=== PATIENT | female | born 1960 | race Caucasian/White ===

== ENCOUNTER 2016-12-18 14:55 | Emergency (ER) | payer MEDICARE, MEDICAID ==
[2016-12-18 15:20] VITALS: BP 173/98
--- NOTE | 2016-12-18 15:31 | UC ---
Respiratory Complaint HPI - HPI Summary HPI Summary: 56 yo female with a 4 day hx of productive cough and wheezing relying more on nebs now no fever/chills some dyspnea no cp x with cough - History of Current Complaint Chief Complaint: UCRespiratory Stated Complaint: RESPIRTORY Time Seen by Provider: 12/18/16 15:14 Hx Obtained From: Patient Onset/Duration: Gradual Onset, Lasting Days Timing: Constant Severity Initially: Moderate Severity Currently: Moderate Pain Intensity: 3 Pain Scale Used: 0-10 Numeric Character: Cough: Productive Aggravating Factors: Deep Breaths Alleviating Factors: Bronchodilator Associated Signs And Symptoms: Positive: Wheezing, Nasal Congestion - Allergies/Home Medications Allergies/Adverse Reactions: Allergies Allergy/AdvReac Type Severity Reaction Status Date / Time Adhesive Tape Allergy Unknown Verified 12/31/14 13:57 Reaction Details Carbapenems Allergy Unknown Verified 12/31/14 13:57 Reaction Details Cephalosporins Allergy Unknown Verified 12/31/14 13:57 Reaction Details Latex Allergy Unknown Verified 12/31/14 13:57 Reaction Details Penicillins [PCN] Allergy Unknown Verified 12/31/14 13:57 Reaction Details betaloctams Allergy Unknown Uncoded 12/31/14 13:57 Reaction Details Home Medications: Home Medications Insulin LISPRO* [HumaLOG*] 30 unit SUBCUT AC 12/18/16 [History Confirmed ] Simvastatin [Zocor 5 MG-] 0 mg PO DAILY 12/18/16 [History Confirmed 12/18/16] PMH/Surg Hx/FS Hx/Imm Hx Previously Healthy: No - pulmonary sacroidosis Endocrine History Of: Reports: Diabetes Cardiovascular History Of: Reports: Cardiac Disorders - CAD, Congestive Heart Failure Respiratory History Of: Reports: COPD, Asthma, Bronchitis, Pneumonia GI/ History Of: Reports: Kidney Stones - MULTIPLE RT KIDNEY 2010 - NOW LT FLANK PAIN - Surgical History Surgical History: Yes Surgery Procedure, Year, and Place: CABG X 4 vessels - Family History Known Family History: Positive: Cardiac Disease, Hypertension, Diabetes - Social History Alcohol Use: None Substance Use Type: None Smoking Status (MU): Never Smoked Tobacco Review of Systems Constitutional: Chills Skin: Negative Eyes: Negative ENT: Negative Respiratory: Shortness Of Breath, Cough Cardiovascular: Negative Gastrointestinal: Negative Genitourinary: Negative Motor: Negative Neurovascular: Negative Musculoskeletal: Negative Neurological: Negative Psychological: Negative All Other Systems Reviewed And Are Negative: Yes Physical Exam Triage Information Reviewed: Yes Appearance: Well-Appearing, No Pain Distress, Well-Nourished Vital Signs: Initial Vital Signs Temp 98.4 F 12/18/16 15:11 Pulse 102 12/18/16 15:11 Resp 20 12/18/16 15:11 BP 173/98 12/18/16 15:11 Pulse Ox 97 12/18/16 15:11 Vital Signs Reviewed: Yes Eyes: Positive: Conjunctiva Clear ENT: Positive: Hearing grossly normal, TMs normal. Negative: Nasal congestion, Nasal drainage, Tonsillar swelling, Tonsillar exudate, Trismus, Muffled/hoarse voice Neck: Positive: Supple, Nontender, No Lymphadenopathy Respiratory: Positive: No respiratory distress, No accessory muscle use, Wheezing. Negative: Respiratory distress, Decreased breath sounds, Accessory muscle use Cardiovascular: Positive: RRR. Negative: Tachycardia, Bradycardia Musculoskeletal: Positive: ROM Intact, No Edema Neurological: Positive: Alert Psychological Exam: Normal Skin Exam: Normal UC Diagnostic Evaluation - Laboratory O2 Sat by Pulse Oximetry: 97 - normal/not hypoxic Respiratory Course/Dx - Differential Dx/Diagnosis Provider Diagnoses: ACUTE BRONCHITIS WITH BRONCHOSPASM Discharge - Discharge Plan Condition: Stable Disposition: HOME Prescriptions: DOXYcycline CAP(*) [DOXYcycline 100MG CAP(*)] 100 mg PO BID #20 cap Prednisone [Deltasone] 40 mg PO DAILY #8 tab Patient Education Materials: Acute Bronchitis (ED) Referrals: Sejal Gill MD [Medical Doctor] - 4 Days Additional Instructions: take 40mg of prednisone the next 4 days then resume your normal daily dose recheck for new or worsening symptoms see your MD later this week for recheck
[2016-12-18] MEDS ORDERED: predniSONE TAB* 10 MG PO ONE (15:43)
[2016-12-18] MEDS ORDERED: Albuterol 2.5 MG/3 ML NEB.SOL* (0.083%) INH ONE (15:43)
[2016-12-18] MEDS ORDERED: Ipratropium 0.5MG/2.5ML NEB* 0.5 MG/2.5 ML NEB.SOLN INH ONE (15:43)
[2016-12-18] MEDS ORDERED: predniSONE TAB* 20 MG PO ONE (16:06)
[2016-12-18] MEDS ORDERED: Levalbuterol 0.63MG/3ML NEB INH ONE (16:06)
== END 2016-12-18 16:50 | disposition home or self-care (01) ==
LOC: UCCORT 14:55
DX: J20.9 Acute bronchitis, unspecified (principal); E11.9 Type 2 diabetes mellitus without complications; Z79.4 Long term (current) use of insulin; D86.0 Sarcoidosis of lung; Z95.1 Presence of aortocoronary bypass graft; I25.10 Atherosclerotic heart disease of native coronary artery without angina pectoris; Z88.0 Allergy status to penicillin; Z88.8 Allergy status to other drugs, medicaments and biological substances
CPT/HCPCS: 99212; A9270-GY; G0463; J7644

== ENCOUNTER 2019-12-27 19:24 | Emergency (ER) | payer MEDICARE, MEDICAID ==
--- OUTSIDE RECORDS SUMMARY | 2019-12-27 19:35 | XMS REPORT | Continuity of Care Document ---
:1960 Author Name Solar Energy Engineer, System Address Unavailable Unavailable , Care Team Providers Name Role Phone Elif Avilez MD Unavailable Norman Buck MD Unavailable Amaya MELENDEZ, Power Unavailable Norman Buck MD Unavailable Dut NPC, Clinton Mcmillan Unavailable Suzanne INSTALLER, Pat Unavailable Unavailable Mega INSTALLER, Cara Unavailable Unavailable Finesse Reyes Unavailable Unavailable Gallardo INSTALLER, Manuel Unavailable Unavailable Priscaglio MSN TARGETEER, Bev Unavailable DeFruscio NPC, Arin Unavailable Mannysey INSTALLER, Adina Unavailable Unavailable Person INSTALLER, Dejah Unavailable Unavailable White INSTALLER, Nichole Unavailable Unavailable Jerome INSTALLER, Sarai Unavailable Unavailable Slowik INSTALLER, Lavinia Unavailable Unavailable Unavailable Unavailable Problems ASTHMA (Renamed from AIRWAY HYPERREACTIVITY) (J45.909) (493.90) Dut, BETHANY Mcmillan CAD (CORONARY ARTERY DISEASE) (I25.10) (414.00) Dut, BETHANY Mcmillan CHF (CONGESTIVE HEART FAILURE) (I50.9) (428.0) Dut, BETHANY Mcmillan CVA (CEREBRAL VASCULAR ACCIDENT) (I63.9) (434.91) Dut, BETHANY Garnerh D GASTROESOPHAGEAL REFLUX DISEASE (K21.9) (530.81) Leonel [facility] Clinton Mcmillan HYPERTENSION (Renamed from BP (HIGH BLOOD PRESSURE)) (I10) (401.9) BETHANY Castaneda HYPOXEMIA (R09.02) (799.02) KRISTEN Cano Prognosis: Continue oxygen at night and PRN per orders. as of 29-Apr-2018 OBESITY (E66.9) (278.00) BETAHNY Castaneda Hipolito RENAL INSUFFICIENCY (N28.9) (593.9) Leonel [facility] Clinton Hipolito SARCOIDOSIS (Renamed from BENIGN LYMPHOGRANULOMATOSIS OF [place]) (D86.9) ( 135) KRISTEN Cano TRANSIENT ISCHEMIC ATTACK (G45.9) (435.9) BETHANY Castaneda Allergies and Adverse Reactions Adhesive Tape (Allergy) Albuterol Sulfate *ANTIASTHMATIC AND BRONCHODILATOR AGENTS* (Allergy) Comments: Dawood Amoxicillin *PENICILLINS* (Allergy) Carbapenems (Allergy) Cephalosporins (Allergy) Latex (Allergy) Penicillins (Allergy) Reaction: Hives Medications AMLODIPINE BESYLATE, 10MG (Oral Tablet); 2 two times daily (10 MG) ASPIRIN, 81MG (PO Cap); daily (81 MG) Atorvastatin Calcium 40 MG Oral Tablet; (40 MG) BYSTOLIC, 10MG (Oral Tablet); 1 two times daily (10 MG) CYMBALTA, 20MG (Oral Capsule Delayed Release Particles); two times daily (20 MG) DiltiaZEM HCl ER Coated Beads 180 MG Oral Capsule Extended Release 24 Hour; (180 MG) FUROSEMIDE, 40MG (Oral Tablet); 2 daily (40 MG) GLUCAGON EMERGENCY, 1MG (Injection Kit); UAD (1 MG) HUMALOG, 100UNIT/ML (Subcutaneous Solution); S/S (100 UNIT/ML) Lantus SoloStar 100 UNIT/ML Subcutaneous Solution Pen-injector; (100 UNIT/ML) Losartan Potassium 100 MG Oral Tablet; (100 MG) METFORMIN HCL, 1000MG (Oral Tablet); two times daily (1000 MG) NITROSTAT, 0.4MG (Sublingual Tablet Sublingual); UAD (0.4 MG) OXYGEN (Inhalation Gas) (Free Text); 2 L at bedtime PLAVIX, 75MG (Oral Tablet); daily (75 MG) Potassium Chloride Shadia ER 20 MEQ Oral Tablet Extended Release; (20 MEQ) POTASSIUM CHLORIDE ER, 10MEQ (Oral Tablet Extended Release); 20 mEq daily (10 MEQ) predniSONE 5 MG Oral Tablet; 1 1/2 (one and a half) Tablet daily for 90 days Ordered: 23-May-2019 Start: 23-May-2019 Quantity: 135 {Tablet} Dut, NPC Clinton D Comments: Decreased to 7.5 mg a day Refills: 3 PROCHLORPERAZINE MALEATE, 10MG Comments: Medication taken as (Oral Tablet); daily, as needed needed. (10 MG) PROTONIX, 40MG (Oral Tablet Delayed Release); two times daily (40 MG) Singulair 10 MG Oral Tablet; 1 Tablet daily for 30 days Ordered: 29-Apr-2018 Start: 29-Apr-2018 Quantity: 30 {Tablet} Dut, NPC Clinton D Refills: 5 Spironolactone 25 MG Oral Tablet; (25 MG) Symbicort 160-4.5 MCG/ACT Inhalation Aerosol; 2 two times daily (160-4.5 MCG/ACT) TOPAMAX, 100MG (Oral Tablet); two times daily (100 MG) Xopenex 1.25 MG/3ML Inhalation Nebulization Solution; UAD Nebulized Soln three times daily for 90 days Ordered: 03-Sep-2018 Start: 03-Sep-2018 Quantity: 270 {Ampule} Dut, NPC Clinton D Refills: 3 Xopenex HFA 45 MCG/ACT Inhalation Aerosol; 2 (two) Puff QID prn for 90 days Ordered: 29-Apr-2018 Start: 29-Apr-2018 Quantity: 3 {Inhaler} Dut, NPC Clinton D Refills: 3 Advair Diskus 500-50 MCG/DOSE Inhalation Aerosol Powder Breath Activated; 1 PUFF Inhalation two times daily for 90 days Ordered: 08-May-2018 Start: End: 08-May-2018 Quantity: 3 {Inhaler} KRISTEN Cano Status: Inactive Refills: 3 AMLODIPINE BESY-BENAZEPRIL HCL, End: 13-Nov-2012 5-40MG (Oral Capsule); two times Status: Inactive daily (5-40 MG) ATENOLOL-CHLORTHALIDONE, 100-25MG End: 13-Nov-2012 (Oral Tablet); daily (100-25 MG) Status: Inactive BYETTA 10 MCG PEN, 10MCG/0.04ML Status: Inactive (Subcutaneous Solution); two times daily (10 MCG/0.04ML) CELEBREX, 200MG (Oral Capsule); End: 13-Nov-2012 daily (200 MG) Status: Inactive CLONIDINE HCL, 0.2MG (Oral Status: Inactive Tablet); three times daily (0.2 MG) Doxycycline Hyclate 100 MG Oral Capsule; 1 (one) Capsule two times daily for 10 days Ordered: 31-Dec-2018 Start: 31-Dec-2018 End: 10-Jan-2019 Quantity: 20 {Capsule} DeFruscio, BETHANY Hinkle Status: Inactive Refills: 0 FAMOTIDINE, 20MG (Oral Tablet); Status: Inactive two times daily (20 MG) FUROSEMIDE, 40MG (Oral Tablet); End: 13-Nov-2012 daily (40 MG) Status: Inactive GLIPIZIDE, 10MG (Oral Tablet Status: Inactive Extended Release 24 Hour); two times daily (10 MG) ISOSORBIDE MONONITRATE CR, 60MG End: 13-Nov-2012 (Oral Tablet Extended Release 24 Status: Inactive Hour); two times daily (60 MG) JANUVIA, 100MG (Oral Tablet); Status: Inactive daily (100 MG) KLOR-CON 10, 10MEQ (Oral Tablet End: 13-Nov-2012 Extended Release); daily (10 Status: Inactive MEQ) LASIX, 80MG (Oral Tablet); 1 two End: 13-May-2013 times daily (80 MG) Status: Inactive LEVEMIR FLEXPEN, 100UNIT/ML Status: Inactive (Subcutaneous Solution Pen-injector); 60ml two times daily (100 UNIT/ML) LEVEMIR FLEXTOUCH, 100UNIT/ML Status: Inactive (Subcutaneous Solution Pen-injector); 40 U Two times daily (100 UNIT/ML) LISINOPRIL, 40MG (Oral Tablet); Status: Inactive 1 two times daily (40 MG) LISINOPRIL, 5MG (Oral Tablet); End: 13-Nov-2012 daily (5 MG) Status: Inactive METOLAZONE, 5MG (Oral Tablet); 1 End: 13-May-2013 daily (5 MG) Status: Inactive NITROSTAT, 0.4MG (Sublingual End: 13-Nov-2012 Tablet Sublingual); uAD (0.4 MG) Status: Inactive NORVASC, 10MG (Oral Tablet); two Status: Inactive times daily (10 MG) OMEPRAZOLE, 40MG (Oral Capsule Status: Inactive Delayed Release); daily (40 MG) PORTABLE CONCENTRATOR ( Device) (Free Text); 1 Device UAD for 30 days Ordered : 13-Nov-2012 Start: 13-Nov-2012 End: 13-Dec-2012 Refills: 0 MD Norman Buck Status: Inactive PREDNISONE (ULISES), 5MG (Oral Tablet); 8 Tablet daily decreasing by 5mg QOD until gone for 16 days Ordered: 08-Jun-2014 Start: 08-Jun-2014 End: 2013 Quantity: 72 {Tablet} DeFruscio, NPC Arin Status: Inactive Refills: 0 predniSONE 5 MG Oral Tablet; 6 Tablet DAILY DECREASING BY 5 MG QOD UNTIL GONE for 12 days Ordered: 31-Dec-2018 Start: 31-Dec-2018 End: 12-Jan-2019 Quantity: 42 {Tablet} DeFruscio, NPC Arin Status: Inactive Refills: 0 PREDNISONE, 2.5MG (Oral Tablet); 3 (three) Tablet daily for 30 days Ordered: 25-Oct-2011 Start: 25-Oct-2011 End: 13-May-2012 Quantity: 90 {Tablet} KRISTEN Gallardo Status: Inactive Refills: 3 SPIRONOLACTONE, 25MG (Oral Status: Inactive Tablet); three times daily (25 MG) AVAPRO, 300MG (Oral Tablet); End: 01-Mar-2012 daily (300 MG) Status: Discontinued BYETTA 5 MCG PEN, 5MCG/0.02ML End: 01-Mar-2012 (Subcutaneous Solution); two Status: Discontinued times daily (5 MCG/0.02ML) HYDROCHLOROTHIAZIDE, 25MG (Oral End: 01-Mar-2012 Tablet); daily (25 MG) Status: Discontinued MELOXICAM, 7.5MG (Oral Tablet); End: 13-May-2013 1 at bedtime (7.5 MG) Status: Discontinued METOPROLOL TARTRATE, 100MG (Oral End: 01-Mar-2012 Tablet); daily (100 MG) Status: Discontinued TRIBENZOR, 40-5-25MG (Oral End: 13-May-2013 Tablet); 1 daily (40-5-25 MG) Status: Discontinued Procedures RESPIRATORY FLOW VOLUME LOOP ([id number]) Status: Completed 29-Apr-2018 REST OXIMETRY (09085) Status: Completed 29-Apr-2018 REST OXIMETRY (90316) Status: Completed 19-Jan-2017 RESPIRATORY FLOW VOLUME LOOP (19907) Status: Completed 19-Jan-2017 REST OXIMETRY (10956) Status: Completed 05-Jan-2016 RESPIRATORY FLOW VOLUME LOOP (45422) Status: Completed 05-Jan-2016 REST OXIMETRY (33641) Status: Completed 07-Jul-2015 RESPIRATORY FLOW VOLUME LOOP (28992) Status: Completed 07-Jul-2015 Pre/Post next visit (94152) Status: Completed 07-Jul-2015 RESPIRATORY FLOW VOLUME LOOP (32925) Status: Completed 30-Jul-2014 Pre/Post next visit (93044) Status: Completed 30-Jul-2014 REST/EXERCISE OXIMETRY (51224) Status: Completed 30-Jul-2014 REST/ EXERCISE OXIMETRY (50002) Status: Completed 12-Nov-2013 RESPIRATORY FLOW VOLUME LOOP (66521) Status: Completed 12-Nov-2013 PRE AND POST (54333) Status: Completed 12-Nov-2013 REST/ EXERCISE OXIMETRY (73288) Status: Completed 13-May-2013 RESPIRATORY FLOW VOLUME LOOP (31345) Status: Completed 13-May-2013 PRE AND POST (24149) Status: Completed 13-May-2013 PFT Simple (52972) Status: Completed 13-May-2012 REST/EXERCISE OXIMETRY (24496) Status: Completed 01-Mar-2012 RESPIRATORY FLOW VOLUME LOOP (33106) Status: Completed 01-Mar-2012 PRE/ POST (61246) Status: Completed 01-Mar-2012 Cardiac Catheterization Status: Completed Comments: x4- 05/2001, 04/2007, 06/2008, 04/2011 Carpal Tunnel Surgery - Right Status: Completed Flu Vaccine Status: Completed Jul-2011 Knee Surgery Status: Completed Comments: Left. PFT Status: Completed 13-May-2012 Comments: Results:. Normal. No Obstruction. PFTs Status: Completed 25-Oct-2011 Comments: Results:. Normal. No Obstruction. Tubal Ligation Status: Completed ACT: ASSESSMENT OF DISEASE: ASTHMA SYMPTOMS EVALUATE Status: Completed (1005F)Result: [Questions] In the past 4 weeks, how much of the time did your asthma keep you from getting as much done at work, school, or home?: 5; During the past 4 weeks, how often have you had shortness of breath?: 5; During the past 4 weeks, how often did your asthma symptoms (wheezing, coughing, shortness of breath, chest tightness, or pain) wake you up at night or earlier than usual in the morning?: 5; During the past 4 weeks, how often have you used your rescue inhaler or nebulizer medication (such as albuterol)?: 5; How would you rate your asthma control during the past 4 weeks?: 3 [Total ACT Score] Score: 23 PRE AND POST W/ RT (59406)Result: Hemoptysis: No Status: Completed 2017 PRE AND POST W/ RT (24338)Result: Hemoptysis: No Status: Completed 19-Jan-2017 PRE AND POST (64374)Result: Hemoptysis: No Status: Completed 05-Jan-2016 ACT - Asthma Control Test NV (1005F)Result: Status: Completed 30-Jul-2014 [Questions] In the past 4 weeks, how much of the time did your asthma keep you from getting as much done at work, school, or home?: 4; During the past 4 weeks, how often have you had shortness of breath?: 3; During the past 4 weeks, how often did your asthma symptoms (wheezing, coughing, shortness of breath, chest tightness, or pain) wake you up at night or earlier than usual in the morning?: 3; During the past 4 weeks, how often have you used your rescue inhaler or nebulizer medication (such as albuterol)?: 4; How would you rate your asthma control during the past 4 weeks?: 3 [Total ACT Score] Score: 17 ACT: ASSESSMENT OF DISEASE: ASTHMA SYMPTOMS EVALUATE Status: Completed (1005F)Result: [Questions] In the past 4 weeks, how much of the time did your asthma keep you from getting as much done at work, school, or home?: 2; During the past 4 weeks, how often have you had shortness of breath?: 1; During the past 4 weeks, how often did your asthma symptoms (wheezing, coughing, shortness of breath, chest tightness, or pain) wake you up at night or earlier than usual in the morning?: 1; During the past 4 weeks, how often have you used your rescue inhaler or nebulizer medication (such as albuterol)?: 2; How would you rate your asthma control during the past 4 weeks?: 2 [Total ACT Score] Score: 8 CHEST X-RAY (40945) PA & LResult: Are you or Status: Completed Apr-2012 could you become ?: No; Pediatric Dental Assistant: Nissa Valadez LPN Asthma Control Test (ACT)Result: [Questions] In the Date: 01-Mar-2012 past 4 weeks, how much of the time did your asthma keep you from getting as much done at work, school, or home?: 3; During the past 4 weeks, how often have you had shortness of breath?: 3; During the past 4 weeks, how often did your asthma symptoms (wheezing, coughing, shortness of breath, chest tightness, or pain) wake you up at night or earlier than usual in the morning?: 2; During the past 4 weeks, how often have you used your rescue inhaler or nebulizer medication (such as albuterol)?: 1; How would you rate your asthma control during the past 4 weeks?: 3 [Total ACT Score] Score: 12 CHEST X-RAY (81057) PA & LResult: Are you or Date: 01-Mar-2012 could you become ?: No; Pediatric Dental Assistant: Finesse Reyes Pre/Post ([id number])Result: Hemoptysis: No; Medication Date: 25-Oct-2011 Used: Xoponex 0.63%; Roofer Helper Vinyl Coating: Adina Coates LPN RESPIRATORY FLOW VOLUME LOOP (20534)Result: Date: 25-Oct-2011 Hemoptysis: No; Medication Used: Xoponex 0.63% Immunizations Influenza (3 years and up) On: 15-Jul-2011 Comments:Given at PCP Influenza (3 years and up) On: 01-Jul-2012 Comments:given at PCP- date approx. Influenza (3 years and up) On: Jul-2013 Comments:received Influenza (3 years and up) On: 15-Jul-2014 Comments:Family Health Influenza (3 years and up) On: Jun-2015 Family History Lung/Respiratory Disease Status: Active Comments: Negative Family History Of. Social History Alcohol use:; Occasional alcohol use. Current work status:; Disabled. Marital status:; . No drug use Tobacco use:; Never smoker. Never smoked tobacco Female Plan of Treatment PRE AND POST W/ RT (69234) Start: 28-Oct-2018 Intent ACT: ASSESSMENT OF DISEASE: ASTHMA SYMPTOMS EVALUATE Start: 19-Jan-2017 Intent (1005F) PRE AND POST W/ RT (85510) Start: 05-Jan-2016 Intent CHEST X-RAY, PA AND LATERAL (05107) Start: 12-Nov-2013 Intent REST OXIMETRY (92381) Start: 13-Nov-2012 Intent Pre/Post (48779) Start: 13-Nov-2012 Intent ASTHMA (Renamed from AIRWAY HYPERREACTIVITY) : Avoid triggers Indication:ASTHMA (Renamed from AIRWAY HYPERREACTIVITY) HYPOXEMIA : Oxygen supplies prn Indication:HYPOXEMIA HYPOXEMIA : Oxygen use reinforced Indication:HYPOXEMIA ASTHMA (Renamed from AIRWAY HYPERREACTIVITY) : Avoid triggers Indication:ASTHMA (Renamed from AIRWAY HYPERREACTIVITY) HYPOXEMIA : Oxygen supplies prn Indication:HYPOXEMIA HYPOXEMIA : Oxygen use reinforced Indication:HYPOXEMIA SARCOIDOSIS (Renamed from BENIGN LYMPHOGRANULOMATOSIS OF [place]) : Call with worsening symptoms Indication:SARCOIDOSIS (Renamed from BENIGN LYMPHOGRANULOMATOSIS OF [place]) SARCOIDOSIS (Renamed from BENIGN LYMPHOGRANULOMATOSIS OF [place]) : Influenza vaccine seasonally Indication:SARCOIDOSIS (Renamed from BENIGN LYMPHOGRANULOMATOSIS OF [place]) SARCOIDOSIS (Renamed from BENIGN LYMPHOGRANULOMATOSIS OF [place]) : Medication compliance reinforced Indication:SARCOIDOSIS (Renamed from BENIGN LYMPHOGRANULOMATOSIS OF [place]) ASTHMA (Renamed from AIRWAY HYPERREACTIVITY) : Avoid triggers Indication:ASTHMA (Renamed from AIRWAY HYPERREACTIVITY) HYPOXEMIA : Oxygen supplies prn Indication:HYPOXEMIA HYPOXEMIA : Oxygen use reinforced Indication:HYPOXEMIA ASTHMA (Renamed from AIRWAY HYPERREACTIVITY) : Avoid triggers Indication:ASTHMA (Renamed from AIRWAY HYPERREACTIVITY) ASTHMA (Renamed from AIRWAY HYPERREACTIVITY) : Avoid triggers Indication:ASTHMA (Renamed from AIRWAY HYPERREACTIVITY) ASTHMA (Renamed from AIRWAY HYPERREACTIVITY) : Medication compliance reinforced Indication:ASTHMA (Renamed from AIRWAY HYPERREACTIVITY) SARCOIDOSIS (Renamed from BENIGN LYMPHOGRANULOMATOSIS OF [place]) : Medication compliance reinforced Indication:SARCOIDOSIS (Renamed from BENIGN LYMPHOGRANULOMATOSIS OF [place]) ASTHMA (Renamed from AIRWAY HYPERREACTIVITY) : Influenza vaccine seasonally Indication:ASTHMA (Renamed from AIRWAY HYPERREACTIVITY) ASTHMA (Renamed from AIRWAY HYPERREACTIVITY) : Medication compliance reinforced Indication:ASTHMA (Renamed from AIRWAY HYPERREACTIVITY) Results No Known Results No Result Information Available Vital Signs 29-Apr-2018 11:43 Temperature 98.2 f Comments: Method: Tympanic Pulse 101 /min Comments: Pattern: Regular Respiration Rate 14 /min Comments: Pattern: Unlabored O2 SAT 98 % Comments: Room air BP Systolic 150 mm[Hg] Comments: Patient Position: Sitting; Cuff Location: Left Arm; Cuff Size: Standard BP Diastolic 110 mm[Hg] Comments: Patient Position: Sitting; Cuff Location: Left Arm; Cuff Size: Standard Weight 194 lb Height 62 in BMI 35.48 kg/m2 BSA 1.89 m2 19-Jan-2017 14:41 Temperature 98.5 f Comments: Method: Tympanic Pulse 92 /min Comments: Pattern: Regular Respiration Rate 12 /min Comments: Pattern: Unlabored O2 SAT 98 % Comments: Room air BP Systolic 120 mm[Hg] Comments: Patient Position: Sitting; Cuff Location: Left Arm; Cuff Size: Standard BP Diastolic 70 mm[Hg] Comments: Patient Position: Sitting; Cuff Location: Left Arm; Cuff Size: Standard Weight 204 lb Height 62 in BMI 37.31 kg/m2 BSA 1.93 m2 05-Jan-2016 12:41 Temperature 97.9 f Comments: Method: Tympanic Pulse 87 /min Comments: Pattern: Regular Respiration Rate 16 /min Comments: Pattern: Unlabored O2 SAT 96 % Comments: Room air BP Systolic 136 mm[Hg] Comments: Patient Position: Sitting; Cuff Location: Left Arm; Cuff Size: Standard BP Diastolic 88 mm[Hg] Comments: Patient Position: Sitting; Cuff Location: Left Arm; Cuff Size: Standard Weight 227 lb Height 62 in BMI 41.52 kg/m2 BSA 2.02 m2 07-Jul-2015 10:14 Temperature 98.1 f Comments: Method: Tympanic Pulse 95 /min Comments: Pattern: Regular Respiration Rate 16 /min Comments: Pattern: Unlabored O2 SAT 98 % Comments: Room air BP Systolic 184 mm[Hg] Comments: Patient Position: Sitting; Cuff Location: Left Arm; Cuff Size: Standard BP Diastolic 114 mm[Hg] Comments: Patient Position: Sitting; Cuff Location: Left Arm; Cuff Size: Standard Weight 224 lb Height 62 in BMI 40.97 kg/m2 BSA 2.01 m2 30-Jul-2014 13:39 Comments: Exertional SaO2 on RA-96% Temperature 98.7 f Comments: Method: Tympanic Pulse 105 /min Comments: Pattern: Regular Respiration Rate 12 /min Comments: Pattern: Unlabored O2 SAT 97 % Comments: Room air BP Systolic 148 mm[Hg] Comments: Patient Position: Sitting; Cuff Location: Left Arm; Cuff Size: Standard BP Diastolic 88 mm[Hg] Comments: Patient Position: Sitting; Cuff Location: Left Arm; Cuff Size: Standard Weight 227 lb Height 62 in BMI 41.52 kg/m2 BSA 2.02 m2 17-Dec-2013 12:30 Temperature 96.9 f Comments: Method: Tympanic Pulse 118 /min Comments: Pattern: Regular Respiration Rate 16 /min Comments: Pattern: Unlabored O2 SAT 97 % Comments: Room air BP Systolic 132 mm[Hg] Comments: Patient Position: Sitting; Cuff Location: Left Arm; Cuff Size: Large BP Diastolic 80 mm[Hg] Comments: Patient Position: Sitting; Cuff Location: Left Arm; Cuff Size: Large Weight 235 lb Height 62 in BMI 42.98 kg/m2 BSA 2.05 m2 12-Nov-2013 12:14 Comments: Exertional Sa02 - 98% Temperature 98.7 f Comments: Method: Tympanic Pulse 118 /min Comments: Pattern: Regular Respiration Rate 16 /min Comments: Pattern: Unlabored O2 SAT 98 % Comments: Room air BP Systolic 146 mm[Hg] Comments: Patient Position: Sitting; Cuff Location: Left Arm; Cuff Size: Standard BP Diastolic 102 mm[Hg] Comments: Patient Position: Sitting; Cuff Location: Left Arm; Cuff Size: Standard Weight 237 lb Height 62 in BMI 43.35 kg/m2 BSA 2.05 m2 13-May-2013 12:05 Comments: Exertional SaO2- 95% Temperature 99.2 f Comments: Method: Tympanic Pulse 100 /min Comments: Pattern: Regular O2 SAT 99 % Comments: Room air BP Systolic 142 mm[Hg] Comments: Patient Position: Sitting; Cuff Location: Left Arm; Cuff Size: Large BP Diastolic 110 mm[Hg] Comments: Patient Position: Sitting; Cuff Location: Left Arm; Cuff Size: Large Weight 233 lb Height 62 in BMI 42.62 kg/m2 BSA 2.04 m2 13-Nov-2012 14:01 Temperature 98.6 f Comments: Method: Tympanic Pulse 96 /min Comments: Pattern: Regular Respiration Rate 18 /min Comments: Pattern: Unlabored O2 SAT 95 % Comments: Room air BP Systolic 118 mm[Hg] Comments: Patient Position: Sitting; Cuff Location: Left Arm; Cuff Size: Standard BP Diastolic 84 mm[Hg] Comments: Patient Position: Sitting; Cuff Location: Left Arm; Cuff Size: Standard Weight 219 lb Height 62 in BMI 40.06 kg/m2 BSA 1.99 m2 13-May-2012 12:49 Comments: exercise 95 % Temperature 98.3 f Comments: Method: Tympanic Pulse 80 /min Comments: Pattern: Regular Respiration Rate 15 /min Comments: Pattern: Unlabored O2 SAT 97 % Comments: Room air BP Systolic 130 mm[Hg] Comments: Patient Position: Sitting; Cuff Location: Left Arm; Cuff Size: Large BP Diastolic 90 mm[Hg] Comments: Patient Position: Sitting; Cuff Location: Left Arm; Cuff Size: Large Weight 223 lb Height 62 in BMI 40.79 kg/m2 BSA 2 m2 01-Mar-2012 14:23 Comments: Room Air Exertional SaO2- 98% Temperature 99.1 f Comments: Method: Tympanic Pulse 84 /min Comments: Pattern: Regular Respiration Rate 14 /min Comments: Pattern: Unlabored O2 SAT 98 % Comments: Room air BP Systolic 118 mm[Hg] Comments: Patient Position: Sitting; Cuff Location: Left Arm; Cuff Size: Standard BP Diastolic 70 mm[Hg] Comments: Patient Position: Sitting; Cuff Location: Left Arm; Cuff Size: Standard Weight 216 lb Height 62 in BMI 39.51 kg/m2 BSA 1.98 m2 25-Oct-2011 13:01 Temperature 98.1 f Comments: Method: Tympanic Pulse 82 /min Comments: Pattern: Regular Respiration Rate 18 /min Comments: Pattern: Unlabored O2 SAT 98 % Comments: Room air BP Systolic 124 mm[Hg] Comments: Patient Position: Sitting; Cuff Location: Left Arm; Cuff Size: Standard BP Diastolic 80 mm[Hg] Comments: Patient Position: Sitting; Cuff Location: Left Arm; Cuff Size: Standard Weight 210 lb Height 61 in BMI 39.68 kg/m2 BSA 1.93 m2 Advance Directives HIPAA - Effective on 04/29/2018. Expires on 04/29/2019. Effective: 29-Apr-2018 Scanned Document is available upon request. Encounters Medication Order 23-May-2019 16:36 To 23-May-2019 16:39 Encounter Diagnosis: ASTHMA (Renamed from AIRWAY HYPERREACTIVITY) [facility] Office Medication Order 31-Dec-2018 12:17 To 31-Dec-2018 12:50 Encounter Diagnosis: ASTHMA (Renamed from AIRWAY HYPERREACTIVITY) [facility], Medication Order 03-Sep-2018 13:20 To 03-Sep-2018 16:42 Encounter Diagnosis: ASTHMA (Renamed from AIRWAY HYPERREACTIVITY) [facility] Historical Summary 31-Jul-2018 12:42 To 31-Jul-2018 13:04 Encounter Diagnosis: ASTHMA (Renamed from AIRWAY HYPERREACTIVITY) [facility] Historical Summary 08-May-2018 16:46 To 08-May-2018 17:02 [facility] Medication Order 01-May-2018 14:05 To 01-May-2018 16:23 Encounter Diagnosis: ASTHMA (Renamed from AIRWAY HYPERREACTIVITY) [facility] Office Office Visit 29-Apr-2018 11:35 To 29-Apr-2018 13:08 Encounter Reason: Asthma Follow Up PHP - The referring provider is Dr. Sanju Coulter. Symptoms include dyspnea (with exer [facility] Office tion, recently diagnosed with CHF), wheezing, cough, prednisone (on due to Sarcoidosis), seasonal triggers and environmental triggers. The last office visit was 1 year(s) ago. Current treatment includes inhaled short-acting beta-2 agonists, inhaled long-acting beta-2 agonists, inhaled corticosteroids and oral corticosteroids. Pertinent medical history includes other pulmonary disease (sarcoidosis) and allergic rhinitis, while pertinent medical history does not include hospitalization for asthma. Pertinent family history does not include asthma, chronic obstructive pulmonary disease or lung cancer. T he patient has been exposed to second hand smoke. The patient's long-term asthma pattern may be classified as mild persistent. The patient describes the difficulty breathing as dyspnea on exertion. Onse t of symptoms was gradual year(s) ago. Onset followed an environmental change, a change in weather and exposure to an irritant. The symptoms occur mostly during the daytime. The episodes occur daily. Th e patient describes this as mild and unchanged. The _asthma_ occurs with exertion. Symptoms are exacerbated by cold temperature and activity. Symptoms are relieved by inhaler use, rest and oral steroids . Associated symptoms do not include orthopnea, fever or chills. The patient reports use of rescue bronchodilator 3 times a day. Bronchodilator use is staying the same. By report there is good complianc e with treatment, good tolerance of treatment and fair symptom control. The patient is currently able to do activities of daily living with limitations, unable to work and able to do housework with limi tations. The patient was previously evaluated in this clinic. Past evaluation has included spirometry, pulmonary function testing, pulse oximetry and chest x- ray. Encounter Diagnosis: ASTHMA (Renamed from [employer]), OBESITY Historical Summary 06-Feb-2018 16:14 To 07-Feb-2018 7:39 Encounter Diagnosis: ASTHMA (Renamed from [employer]) [facility] Office Medication Order 13-Sep-2017 16:15 To 14-Sep-2017 8:02 Encounter Diagnosis: ASTHMA (Renamed from [employer]) [facility], Historical Summary 19-Jan-2017 15:25 To 19-Jan-2017 15:27 [facility] Office Office Visit 19-Jan-2017 14:33 To 19-Jan-2017 15:21 Encounter Reason: Asthma Follow Up [facility] - The referring provider is Dr. Sanju Coulter. Symptoms include dyspnea (with exer [facility] tion, recently diagnosed with CHF), wheezing, cough, prednisone (on due to Sarcoidosis), seasonal triggers and environmental triggers. The last office visit was 1 year(s) ago. Current treatment includes inhaled short-acting beta-2 agonists, inhaled long-acting beta-2 agonists, inhaled corticosteroids and oral corticosteroids. Pertinent medical history includes other pulmonary disease (sarcoidosis) and allergic rhinitis, while pertinent medical history does not include hospitalization for asthma. Pertinent family history does not include asthma, chronic obstructive pulmonary disease or lung cancer. T he patient has been exposed to second hand smoke. The patient's long-term asthma pattern may be classified as mild persistent. The patient describes the difficulty breathing as dyspnea on exertion. Onse t of symptoms was gradual year(s) ago. Onset followed an environmental change, a change in weather and exposure to an irritant. The symptoms occur mostly during the daytime. The episodes occur daily. Th e patient describes this as mild and unchanged. The _asthma_ occurs with exertion. Symptoms are exacerbated by cold temperature and activity. Symptoms are relieved by inhaler use, rest and oral steroids . Associated symptoms do not include orthopnea, fever or chills. The patient reports use of rescue bronchodilator 3 times a day. Bronchodilator use is staying the same. By report there is good complianc e with treatment, good tolerance of treatment and fair symptom control. The patient is currently able to do activities of daily living with limitations, unable to work and able to do housework with limi tations. The patient was previously evaluated in this clinic. Past evaluation has included spirometry, pulmonary function testing, pulse oximetry and chest x- ray. 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 Sanju Coulter. Symptoms include dyspnea (with [facility] tion, recently diagnosed with CHF), wheezing, cough, prednisone (on due to Sarcoidosis), seasonal triggers and environmental triggers. The last office visit was 6 month(s) ago. Current treatment include s inhaled short-acting beta-2 agonists, inhaled long-acting beta-2 agonists, inhaled corticosteroids and oral corticosteroids. Pertinent medical history includes other pulmonary disease (sarcoidosis) an d allergic rhinitis, while pertinent medical history does not include hospitalization for asthma. Pertinent family history does not include asthma, chronic obstructive pulmonary disease or lung cancer. The patient has been exposed to second hand smoke. The patient's long-term asthma pattern may be classified as mild persistent. The patient describes the difficulty breathing as dyspnea on exertion. Ons et of symptoms was gradual year(s) ago. Onset followed an environmental change , a change in weather and exposure to an irritant. The symptoms occur mostly during the daytime. The episodes occur daily. T he patient describes this as mild and unchanged. The _asthma_ occurs with exertion. Symptoms are exacerbated by cold temperature and activity. Symptoms are relieved by inhaler use, rest and oral steroid s. Associated symptoms do not include orthopnea, fever or chills. The patient reports use of rescue bronchodilator 3 times a day. Bronchodilator use is staying the same. By report there is good complian ce with treatment, good tolerance of treatment and fair symptom control. The patient is currently able to do activities of daily living with limitations, unable to work and able to do housework with lainez itations. The patient was previously evaluated in this clinic. Past evaluation has included spirometry, pulmonary function testing, pulse oximetry and chest x- ray. Encounter Diagnosis: ASTHMA (Renamed from [employer]IV[employer]), OBESITY Office Visit 07-Jul-2015 9:46 To 07-Jul-2015 13:06 Encounter Reason: Asthma Follow Up [facility] - The referring provider is Dr. Sanju Coulter. Symptoms include dyspnea (with [facility] tion, recently diagnosed with CHF), wheezing, cough, prednisone (on due to Sarcoidosis), seasonal triggers and environmental triggers. The last office visit was 1 year(s) ago. Current treatment includes inhaled short-acting beta-2 agonists, inhaled long-acting beta-2 agonists, inhaled corticosteroids and oral corticosteroids. Pertinent medical history includes other pulmonary disease (sarcoidosis) and allergic rhinitis, while pertinent medical history does not include hospitalization for asthma. Pertinent family history does not include asthma, chronic obstructive pulmonary disease or lung cancer. T he patient has been exposed to second hand smoke. The patient's long-term asthma pattern may be classified as mild persistent. The patient describes the difficulty breathing as dyspnea on exertion. Onse t of symptoms was gradual year(s) ago. Onset followed an environmental change, a change in weather and exposure to an irritant. The symptoms occur mostly during the daytime. The episodes occur daily. Th e patient describes this as mild and unchanged. The _asthma_ occurs with exertion. Symptoms are exacerbated by cold temperature and activity. Symptoms are relieved by inhaler use, rest and oral steroids . Associated symptoms do not include orthopnea, fever or chills. The patient reports use of rescue bronchodilator 3 times a day. Bronchodilator use is staying the same. By report there is good complianc e with treatment, good tolerance of treatment and fair symptom control. The patient is currently able to do activities of daily living with limitations, unable to work and able to do housework with limi tations. The patient was previously evaluated in this clinic. Past evaluation has included spirometry, pulmonary function testing, pulse oximetry and chest x- ray. Encounter Diagnosis: ASTHMA (Renamed from [employer]IV[employer]), OBESITY Medication Order 18-Feb-2015 16:01 To 18-Feb-2015 16:21 Encounter Diagnosis: ASTHMA (Renamed from [employer]) [facility] Office Office Visit 30-Jul-2014 13:22 To 30-Jul-2014 14:12 Encounter Reason: ASTHMA, FOLLOW UP - The patient's asthma causes daytime symptoms most days. The patient's asthma is n [facility] ot disturbing sleep. Note for "Follow-up for asthma": July 30, 2014 Mya is using her oxygen at night for sleep. She has no daytime sleepiness she is able to lose some weight and feels better. He r breathing is doing well she is not symptomatic with any increased shortness of breath or wheezing and chest tightness or cough she has no increased joint pains no headaches no fevers or chills no coughing up blood. Encounter Diagnosis: ASTHMA (Renamed from [employer]), SARCOIDOSIS (Renamed from BENIGN LYMPHOGRANULOMATOSIS OF [place]) Medication Order 08-Jun-2014 10:41 To 08-Jun-2014 12:23 Encounter Diagnosis: ASTHMA (Renamed from [employer]) [facility] Office Visit 17-Dec-2013 12:24 To 17-Dec-2013 16:03 Encounter Reason: Asthma Follow Up [facility] - The referring provider is Dr. Sanju Coulter. Symptoms include dyspnea (with exer [facility] tion, also has a diagnosis of CHF), wheezing, cough, prednisone (on due to Sarcoidosis), seasonal triggers and environmental triggers. The last office visit was 6 week(s) ago. Management changes made at the last visit include ordering Doxycyline and Predniosne taper. Current treatment includes inhaled short-acting beta-2 agonists, inhaled long-acting beta-2 agonists, inhaled corticosteroids and oral c orticosteroids. Pertinent medical history includes other pulmonary disease ( sarcoidosis) and allergic rhinitis, while pertinent medical history does not include hospitalization for asthma. Pertinent [facility] history does not include asthma, chronic obstructive pulmonary disease or lung cancer. The patient has been exposed to second hand smoke. The patient's long-term asthma pattern may be classified as mild persistent (although she appears to be having acute symptoms at the present time. She has been maxamizing her rescue inhaler without relief of symptoms. SHe has activty intolerance, wheezin g and a cough with yellow sputum production. ). The patient describes the difficulty breathing as dyspnea on exertion. Onset of symptoms was gradual. Onset followed an environmental change, a change in weather and exposure to an irritant. The symptoms occur mostly during the daytime. The episodes occur daily. The patient describes this as mild and improving. The _asthma_ occurs with exertion. Symp toms are exacerbated by cold temperature and activity. Symptoms are relieved by inhaler use, rest and oral steroids. Associated symptoms include upper respiratory infection symptoms, while associated sy mptoms do not include orthopnea, fever or chills. The patient reports use of rescue bronchodilator 3 times a day. Bronchodilator use is becoming less frequent. By report there is good compliance with tr eatment, good tolerance of treatment and good symptom control. The patient is currently able to do activities of daily living with limitations, unable to work and able to do housework with limitations. The patient was previously evaluated by me 6 week(s) ago. Past evaluation has included spirometry, pulmonary function testing, pulse oximetry and chest x-ray. , [ADDITIONAL REASON] Sarcoidosis - Symptoms include fatigue, cough and dyspnea. The patient describes this as moderate in severity and unchanged. Symptoms are exacerbated by walking and exercise. Sympto ms are relieved by rest, inhalers and corticosteroids. Associated symptoms do not include night sweats or Alexandra palsy. Current treatment includes oral corticosteroids. By report there is good compliance with treatment, good tolerance of treatment and good symptom control. Pertinent medical history includes asthma and obesity. , [ADDITIONAL REASON] ASTHMA, FOLLOW UP - The patient's asthma causes daytime symptoms most days. The patient's asthma is not disturbing sleep. Encounter Diagnosis: ASTHMA (Renamed from [employer]IV[employer]), HYPOXEMIA Office Visit 12-Nov-2013 11:52 To 12-Nov-2013 18:52 Encounter Reason: Asthma Follow Up [facility] - The referring provider is Dr. Sanju Coulter. Symptoms include dyspnea (with exer [facility] tion, also has a diagnosis of CHF), wheezing, cough, prednisone (on due to Sarcoidosis), seasonal triggers and environmental triggers. The last office visit was 6 month(s) ago. No changes in management were made at the last visit. Current treatment includes inhaled short-acting beta-2 agonists, inhaled long-acting beta-2 agonists, inhaled corticosteroids and oral corticosteroids. Pertinent medical his tory includes other pulmonary disease (sarcoidosis) and allergic rhinitis, while pertinent medical history does not include hospitalization for asthma. Pertinent family history does not include asthma, chronic obstructive pulmonary disease or lung cancer. The patient has been exposed to second hand smoke. The patient's long-term asthma pattern may be classified as mild persistent (although she appears to be having acute symptoms at the present time. She has been maxamizing her rescue inhaler without relief of symptoms. SHe has activty intolerance, wheezing and a cough with yellow sputum production . ). The patient describes the difficulty breathing as dyspnea on exertion. Onset of symptoms was gradual. Onset followed an environmental change, a change in weather and exposure to an irritant. The s ymptoms occur mostly during the daytime. The episodes occur daily. The patient describes this as mild and worsening (with her acute symptoms.). The _asthma_ occurs with exertion. Symptoms are exacerbate d by cold temperature and activity. Symptoms are relieved by inhaler use, rest and oral steroids. Associated symptoms include upper respiratory infection symptoms, while associated symptoms do not inclu de orthopnea, fever or chills. The patient reports use of rescue bronchodilator 3 times a day. Bronchodilator use is becoming more frequent. By report there is good compliance with treatment, fair becki ance of treatment and fair symptom control. The patient is currently able to do activities of daily living with limitations, unable to work and able to do housework with limitations. The patient was pre viously evaluated by me 6 month(s) ago. Past evaluation has included spirometry , pulmonary function testing, pulse oximetry and chest x-ray., [ADDITIONAL REASON] ASTHMA, FOLLOW UP - The patient's asthma causes daytime symptoms most days. The patient's asthma is causing night waking. , [ADDITIONAL REASON] Sarcoidosis - Symptoms include fatigue, cough and dyspnea. The patient describes this as moderate in severity and unchanged. Symptoms are exacerbated by walking and exercise. Sympto ms are relieved by rest, inhalers and corticosteroids. Associated symptoms do not include night sweats or Alexandra palsy. Current treatment includes oral corticosteroids. By report there is good compliance with treatment, good tolerance of treatment and good symptom control. Pertinent medical history includes asthma and obesity. 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 The patient describes this as moderate in [facility] severity and unchanged. Symptoms are exacerbated by walking and exercise. Symptoms are relieved by rest, inhalers and corticosteroids. Associated symptoms do not include night sweats or Alexandra palsy. Curr ent treatment includes oral corticosteroids. By report there is good compliance with treatment, good tolerance of treatment and good symptom control. Pertinent medical history includes asthma and obesity., [ADDITIONAL REASON] Asthma Follow Up [facility] - The referring provider is Dr. Sanju Coulter. Symptoms include dyspnea (with exertion, recently diagnosed with CHF), wheezing, cough, prednisone (on due to Sarco idosis), seasonal triggers and environmental triggers. The last office visit was 7 month(s) ago. Management changes made at the last visit include none ( since patient was hospitalized for pneumonia and states she was told by her it architecture consultant she is currently in CHF). Current treatment includes inhaled short-acting beta-2 agonists, inhaled long-acting beta-2 agonists, inhaled corticosteroids and oral c orticosteroids. Pertinent medical history includes other pulmonary disease ( sarcoidosis) and allergic rhinitis, while pertinent medical history does not include hospitalization for asthma. Pertinent [facility] history does not include asthma, chronic obstructive pulmonary disease or lung cancer. The patient has been exposed to second hand smoke. The patient's long-term asthma pattern may be classified as mild persistent. The patient describes the difficulty breathing as dyspnea on exertion. Onset of symptoms was gradual year(s) ago. Onset followed an environmental change, a change in weather and exposur e to an irritant. The symptoms occur mostly during the daytime. The episodes occur daily. The patient describes this as mild and unchanged. The _asthma_ occurs with exertion. Symptoms are exacerbated by cold temperature and activity. Symptoms are relieved by inhaler use, rest and oral steroids. Associated symptoms do not include orthopnea, fever or chills. The patient reports use of rescue bronchodila tor 3 times a day. Bronchodilator use is staying the same. By report there is good compliance with treatment, good tolerance of treatment and fair symptom control. The patient is currently able to do ac tivities of daily living with limitations, unable to work and able to do housework with limitations. The patient was previously evaluated in this clinic 6 month(s) ago. Past evaluation has included spir ometry, pulmonary function testing, pulse oximetry and chest x-ray. Encounter Diagnosis: ASTHMA (Renamed from [employer]IVITY), HYPOXEMIA Medication Order 18-Apr-2013 15:01 To 18-Apr-2013 15:13 Encounter Diagnosis: SARCOIDOSIS (Renamed from BENIGN LYMPHOGRANULOMATOSIS OF [place]) [facility] Historical Summary 10-Feb-2013 15:47 To 10-Feb-2013 15:49 [facility] Office Office Visit 13-Nov-2012 13:48 To 13-Nov-2012 16:00 Encounter Reason: Sarcoidosis - Symptoms include fatigue, cough and dyspnea. The patient describes this as moderate in [facility] severity and unchanged. Symptoms are exacerbated by walking and exercise. Symptoms are relieved by rest, inhalers and corticosteroids. Associated symptoms do not include night sweats or Alexandra palsy. Curr ent treatment includes oral corticosteroids. By report there is good compliance with treatment, good tolerance of treatment and good symptom control. Pertinent medical history includes asthma and obesity., [ADDITIONAL REASON] Asthma Follow Up [facility] - The referring provider is Dr. Sanju Coulter. Symptoms include dyspnea (with exertion, recently diagnosed with CHF), wheezing, cough, prednisone (on due to Sarco idosis), seasonal triggers and environmental triggers. The last office visit was 7 month(s) ago. Management changes made at the last visit include none ( since patient was hospitalized for pneumonia and states she was told by her it architecture consultant she is currently in CHF). Current treatment includes inhaled short-acting beta-2 agonists, inhaled long-acting beta-2 agonists, inhaled corticosteroids and oral c orticosteroids. Pertinent medical history includes other pulmonary disease ( sarcoidosis) and allergic rhinitis, while pertinent medical history does not include hospitalization for asthma. Pertinent [facility] history does not include asthma, chronic obstructive pulmonary disease or lung cancer. The patient has been exposed to second hand smoke. The patient's long-term asthma pattern may be classified as mild persistent. The patient describes the difficulty breathing as dyspnea on exertion. Onset of symptoms was gradual year(s) ago. Onset followed an environmental change, a change in weather and exposur e to an irritant. The symptoms occur mostly during the daytime. The episodes occur daily. The patient describes this as mild and unchanged. The _asthma_ occurs with exertion. Symptoms are exacerbated by cold temperature and activity. Symptoms are relieved by inhaler use, rest and oral steroids. Associated symptoms do not include orthopnea, fever or chills. The patient reports use of rescue bronchodila tor 3 times a day. Bronchodilator use is staying the same. By report there is good compliance with treatment, good tolerance of treatment and fair symptom control. The patient is currently able to do ac tivities of daily living with limitations, unable to work and able to do housework with limitations. The patient was previously evaluated in this clinic 2 month(s) ago. Past evaluation has included spir ometry, pulmonary function testing, pulse oximetry and chest x-ray. PATIENT TELLS ME THAT SHE WENT TO HER PRIMARY CARE PROVIDER ABOUT 2 MONTHS AGO WHEN SHE ALL OF SUDDEN WAS SOB, DIZZY, AND CHEST PAIN. PATIENT TELLS ME THAT SHE TAKEN TO [facility] WHERE SHE SPENT 1 NIGHT. PER PATIENT, THE RESULTS FOR MRI, ECHO, CXR DONE AT [facility] WHERE NORMAL. PATIENT PRESENTS TODAY STATING THAT SHE IS FINE AND TAKING MEDS WITHOUT ANY PROBLEMS. Encounter Diagnosis: ASTHMA (Renamed from [employer]) Office Visit 13-May-2012 12:43 To 13-May-2012 13:54 Encounter Reason: Asthma Follow Up [facility] - The referring provider is Dr. Sanju Coulter. Symptoms include dyspnea (with exer [facility] tion, recently diagnosed with CHF), wheezing, cough, prednisone (on due to Sarcoidosis), seasonal triggers and environmental triggers. The last office visit was 2 month(s) ago. Management changes made a t the last visit include none (since patient was hospitalized for pneumonia and states she was told by her it architecture consultant she is currently in CHF). Current treatment includes inhaled short-acting beta-2 a gonists, inhaled long-acting beta-2 agonists, inhaled corticosteroids and oral corticosteroids. Pertinent medical history includes other pulmonary disease ( sarcoidosis) and allergic rhinitis, while pert inent medical history does not include hospitalization for asthma. Pertinent family history does not include asthma, chronic obstructive pulmonary disease or lung cancer. The patient has been exposed to second hand smoke. The patient's long-term asthma pattern may be classified as mild persistent. The patient describes the difficulty breathing as dyspnea on exertion. Onset of symptoms was gradual year (s) ago. Onset followed an environmental change, a change in weather and exposure to an irritant. The symptoms occur mostly during the daytime. The episodes occur daily. The patient describes this as mi ld and unchanged. The _asthma_ occurs with exertion. Symptoms are exacerbated by cold temperature and activity. Symptoms are relieved by inhaler use, rest and oral steroids. Associated symptoms do not i nclude orthopnea, fever or chills. The patient reports use of rescue bronchodilator 3 times a day. Bronchodilator use is staying the same. By report there is good compliance with treatment, good toleran ce of treatment and fair symptom control. The patient is currently able to do activities of daily living with limitations, unable to work and able to do housework with limitations. The patient was previ ously evaluated in this clinic 2 month(s) ago. Past evaluation has included spirometry, pulmonary function testing, pulse oximetry and chest x-ray. Encounter Diagnosis: ASTHMA (493.90), SARCOIDOSIS (135.) Historical Summary 08-May-2012 10:17 To 08-May-2012 10:28 [facility] Office Visit 01-Mar-2012 13:37 To 01-Mar-2012 15:08 Encounter Reason: Asthma Follow Up [facility] - The referring provider is Dr. Sanju Coulter. Symptoms include dyspnea (with exer [facility] tion), wheezing, cough, mucous (clear to white), prednisone (on due to Sarcoidosis), seasonal triggers and environmental triggers. The last office visit was 7 month(s) ago. No changes in management were made at the last visit. Current treatment includes inhaled short-acting beta- 2 agonists, inhaled long-acting beta-2 agonists, inhaled corticosteroids and oral corticosteroids. Pertinent medical history includes allergic rhinitis, while pertinent medical history does not include hospitalization for asthma. Pertinent family history does not include asthma, chronic obstructive pulmonary disease or lung cancer. The patient has been exposed to second hand smoke. The patient's long- term asthma pattern may be classified as mild persistent. The patient describes the difficulty breathing as dyspnea on exert ion. Onset of symptoms was gradual year(s) ago. Onset followed an environmental change, a change in weather and exposure to an irritant. The symptoms occur mostly during the daytime. The episodes occur daily. The patient describes this as mild and unchanged. The _asthma_ occurs with exertion. Symptoms are exacerbated by cold temperature and activity. Symptoms are relieved by inhaler use, rest and oral steroids. Associated symptoms do not include orthopnea, fever or chills. The patient reports use of rescue bronchodilator 3 times a day. Bronchodilator use is staying the same. By report there is good compliance with treatment, good tolerance of treatment and fair symptom control. The patient is currently able to do activities of daily living with limitations, unable to work and able to do housework with limitations. The patient was previously evaluated in this clinic 7 month(s ) ago. Past evaluation has included spirometry, pulmonary function testing, pulse oximetry and chest x-ray. Note for "Asthm a follow-up": 03/01/12WAS DOING WELL UNTIL 1 WEEK AGO WITH SOB TO ED FOUND TO HAVE HTN AND TREATED AND D/C. NOW BACK TO [facility] WITH OCC SOB AND RESPONSE TO XOPENEX. SHE IS NOT HAVING ANY JOINT PAINS. Encounter Diagnosis: SARCOIDOSIS (135.) Medication Order 26-Feb-2012 15:45 To 26-Feb-2012 15:45 Encounter Diagnosis: ASTHMA (493.90) [facility] Office Visit 25-Oct-2011 12:16 To 25-Oct-2011 16:37 Encounter Reason: Asthma Follow Up [facility] - The referring provider is Dr. Sanju Coulter. Symptoms include dyspnea (with exer [facility] tion), wheezing, cough, mucous (clear to white), prednisone (on due to Sarcoidosis), seasonal triggers and environmental triggers. The last office visit was 7 month(s) ago. No changes in management were made at the last visit. Current treatment includes inhaled short-acting beta- 2 agonists, inhaled long-acting beta-2 agonists, inhaled corticosteroids and oral corticosteroids. Pertinent medical history includes allergic rhinitis, while pertinent medical history does not include hospitalization for asthma. Pertinent family history does not include asthma, chronic obstructive pulmonary disease or lung cancer. The patient has been exposed to second hand smoke. The patient's long- term asthma pattern may be classified as mild persistent. The patient describes the difficulty breathing as dyspnea on exert ion. Onset of symptoms was gradual year(s) ago. Onset followed an environmental change, a change in weather and exposure to an irritant. The symptoms occur mostly during the daytime. The episodes occur daily. The patient describes this as mild and unchanged. The _asthma_ occurs with exertion. Symptoms are exacerbated by cold temperature and activity. Symptoms are relieved by inhaler use, rest and oral steroids. Associated symptoms do not include orthopnea, fever or chills. The patient reports use of rescue bronchodilator 3 times a day. Bronchodilator use is staying the same. By report there is good compliance with treatment, good tolerance of treatment and fair symptom control. The patient is currently able to do activities of daily living with limitations, unable to work and able to do housework with limitations. The patient was previously evaluated in this clinic 7 month(s ) ago. Past evaluation has included spirometry, pulmonary function testing, pulse oximetry and chest x-ray., [ADDITIONAL REASON] Sarcoidosis - Symptoms include fatigue, cough and dyspnea. The patient describes this as moderate in severity and unchanged. Symptoms are exacerbated by walking and exercise. Sympto ms are relieved by rest, inhalers and corticosteroids. Associated symptoms do not include night sweats or Alexandra palsy. Current treatment includes oral corticosteroids. By report there is good compliance with treatment, good tolerance of treatment and good symptom control. Pertinent medical history includes asthma and obesity. Encounter Diagnosis: ASTHMA (493.90), SARCOIDOSIS (135.) Historical Summary 24-Oct-2011 8:59 To 24-Oct-2011 9:13 [facility] Payers Medicare [place] [address] [facility] [address] [place] Group Number: NONE tel: Medicaid/Comp Science C [address] [facility] [address] [place] Group Number: NONE tel: MYA LOVE [address] [place] [id number] tel:
--- OUTSIDE RECORDS SUMMARY | 2019-12-27 19:35 | XMS REPORT | Continuity of Care Document ---
:1960 Author Name Study Coordinator, System Address Unavailable Unavailable , Care Team Providers Name Role Phone Elif Avilez MD Unavailable Norman Buck MD Unavailable Amaya MELENDEZ, Power Unavailable Norman Buck MD Unavailable Dut NPC, Clinton Mcmillan Unavailable Suzanne INVESTMENT COUNSELOR, Pat Unavailable Unavailable Mega INVESTMENT COUNSELOR, Cara Unavailable Unavailable Finesse Reyes Unavailable Unavailable Gallardo INVESTMENT COUNSELOR, Manuel Unavailable Unavailable Priscaglio MSN IUSS ACOUSTIC ANALYST, Bev Unavailable DeFruscio NPC, Arin Unavailable Mannysey INVESTMENT COUNSELOR, Adina Unavailable Unavailable Person INVESTMENT COUNSELOR, Dejah Unavailable Unavailable White INVESTMENT COUNSELOR, Nichole Unavailable Unavailable Jerome INVESTMENT COUNSELOR, Sarai Unavailable Unavailable Slowik INVESTMENT COUNSELOR, Lavinia Unavailable Unavailable Unavailable Unavailable Problems ASTHMA (Renamed from AIRWAY HYPERREACTIVITY) (J45.909) (493.90) Dut, BETHANY Mcmillan CAD (CORONARY ARTERY DISEASE) (I25.10) (414.00) Dut, BETHANY Mcmillan CHF (CONGESTIVE HEART FAILURE) (I50.9) (428.0) Dut, BETHANY Mcmillan CVA (CEREBRAL VASCULAR ACCIDENT) (I63.9) (434.91) Dut, BETHANY Garnerh D GASTROESOPHAGEAL REFLUX DISEASE (K21.9) (530.81) Leonel [facility] Clinton Mcmillan HYPERTENSION (Renamed from BP (HIGH BLOOD PRESSURE)) (I10) (401.9) BETHANY Castaneda HYPOXEMIA (R09.02) (799.02) KIRSTEN Cano Prognosis: Continue oxygen at night and PRN per orders. as of 29-Apr-2018 OBESITY (E66.9) (278.00) BETHANY Castaneda Hipolito RENAL INSUFFICIENCY (N28.9) (593.9) Leonel [facility] Clinton Hipolito SARCOIDOSIS (Renamed from BENIGN [...] Status: Discontinued Procedures RESPIRATORY FLOW VOLUME LOOP (37778) Status: Completed 29-Apr-2018 REST OXIMETRY (34593) Status: Completed 29-Apr-2018 REST OXIMETRY (06291) Status: Completed 19-Jan-2017 RESPIRATORY FLOW VOLUME LOOP (28562) Status: Completed 19-Jan-2017 REST OXIMETRY (18659) Status: Completed 05-Jan-2016 RESPIRATORY FLOW VOLUME LOOP (02379) Status: Completed 05-Jan-2016 REST OXIMETRY (67096) Status: Completed 07-Jul-2015 RESPIRATORY FLOW VOLUME LOOP (64909) Status: Completed 07-Jul-2015 Pre/Post next visit (61911) Status: Completed 07-Jul-2015 RESPIRATORY FLOW VOLUME LOOP (82589) Status: Completed 30-Jul-2014 Pre/Post next visit (49145) Status: Completed 30-Jul-2014 REST/EXERCISE OXIMETRY (57208) Status: Completed 30-Jul-2014 REST/ EXERCISE OXIMETRY (99154) Status: Completed 12-Nov-2013 RESPIRATORY FLOW VOLUME LOOP (60043) Status: Completed 12-Nov-2013 PRE AND POST (15972) Status: Completed 12-Nov-2013 REST/ EXERCISE OXIMETRY (10834) Status: Completed 13-May-2013 RESPIRATORY FLOW VOLUME LOOP (71106) Status: Completed 13-May-2013 PRE AND POST (53991) Status: Completed 13-May-2013 PFT Simple (19471) Status: Completed 13-May-2012 REST/EXERCISE OXIMETRY (44998) Status: Completed 01-Mar-2012 RESPIRATORY FLOW VOLUME LOOP (11110) Status: Completed 01-Mar-2012 PRE/ POST (05009) Status: Completed 01-Mar-2012 Cardiac Catheterization Status: Completed [...] Score: 23 PRE AND POST W/ RT (91315)Result: Hemoptysis: No Status: Completed 2017 PRE AND POST W/ RT (60174)Result: Hemoptysis: No Status: Completed 19-Jan-2017 PRE AND POST (19368)Result: Hemoptysis: No Status: Completed 05-Jan-2016 ACT - [...] [Total ACT Score] Score: 8 CHEST X-RAY (58720) PA & LResult: Are you or Status: Completed Apr-2012 could you become ?: No; [employer] Leader [employer] Processing: Nissa Valadez LPN Asthma Control Test (ACT)Result: [...] [Total ACT Score] Score: 12 CHEST X-RAY (91517) PA & LResult: Are you or Date: 01-Mar-2012 could you become ?: No; [employer] Leader [employer] Processing: Finesse Reyes Pre/Post (06821)Result: Hemoptysis: No; Medication Date: 25-Oct-2011 Used: Xoponex 0.63%; Ore Grader: Adina Coates LPN RESPIRATORY FLOW VOLUME LOOP (68032)Result: Date: 25-Oct-2011 Hemoptysis: No; Medication Used: Xoponex [...] of Treatment PRE AND POST W/ RT (60997) Start: 28-Oct-2018 Intent ACT: ASSESSMENT OF DISEASE: ASTHMA SYMPTOMS EVALUATE Start: 19-Jan-2017 Intent (1005F) PRE AND POST W/ RT (79234) Start: 05-Jan-2016 Intent CHEST X-RAY, PA AND LATERAL (29132) Start: 12-Nov-2013 Intent REST OXIMETRY (11377) Start: 13-Nov-2012 Intent Pre/Post (72788) Start: 13-Nov-2012 Intent ASTHMA (Renamed from AIRWAY [...] Encounter Diagnosis: ASTHMA (Renamed from AIRWAY HYPERREACTIVITY) [facility] Medication Order 31-Dec-2018 12:17 To 31-Dec-2018 12:50 Encounter Diagnosis: ASTHMA (Renamed from AIRWAY HYPERREACTIVITY) [facility], Medication Order 03-Sep-2018 13:20 To 03-Sep-2018 16:42 Encounter Diagnosis: ASTHMA (Renamed from AIRWAY HYPERREACTIVITY) [facility] Historical Summary 31-Jul-2018 12:42 To 31-Jul-2018 13:04 Encounter Diagnosis: ASTHMA (Renamed from AIRWAY HYPERREACTIVITY) [facility] Historical Summary 08-May-2018 16:46 To 08-May-2018 17:02 [facility] Medication Order 01-May-2018 14:05 To 01-May-2018 16:23 Encounter Diagnosis: ASTHMA (Renamed from AIRWAY HYPERREACTIVITY) [facility] Office Visit 29-Apr-2018 11:35 To 29-Apr-2018 13:08 Encounter Reason: Asthma Follow Up [facility] - The referring provider is Dr. Sanju Coulter. Symptoms include dyspnea (with exer [facility] tion, recently diagnosed with [...] Encounter Diagnosis: ASTHMA (Renamed from AIRWAY HYPERREACTIVITY) [facility] Office Medication Order 13-Sep-2017 16:15 To 14-Sep-2017 8:02 Encounter Diagnosis: ASTHMA (Renamed from AIRWAY HYPERREACTIVITY) [facility], Historical Summary 19-Jan-2017 15:25 To 19-Jan-2017 15:27 [facility] Office Visit 19-Jan-2017 14:33 To 19-Jan-2017 15:21 Encounter Reason: Asthma Follow Up [facility] - The referring provider is Dr. Sanju Coulter. Symptoms include dyspnea (with exer [facility] tion, recently diagnosed with [...] 05-Jan-2016 13:33 Encounter Reason: Asthma Follow Up [facility] - The referring provider is Dr. Sanju Coulter. Symptoms include dyspnea (with [facility] tion, recently diagnosed with CHF), wheezing, [...] 07-Jul-2015 13:06 Encounter Reason: Asthma Follow Up [facility] - The referring provider is Dr. Sanju Coulter. Symptoms include dyspnea (with [facility] tion, recently diagnosed with CHF), wheezing, [...] Encounter Diagnosis: ASTHMA (Renamed from AIRWAY HYPERREACTIVITY) [facility] Office Visit 30-Jul-2014 13:22 To 30-Jul-2014 14:12 Encounter Reason: ASTHMA, FOLLOW UP - The patient's asthma causes daytime symptoms most days. The patient's asthma is n [facility] Office ot disturbing sleep. Note [...] Encounter Diagnosis: ASTHMA (Renamed from AIRWAY HYPERREACTIVITY) [facility] Office Visit 17-Dec-2013 12:24 To 17-Dec-2013 16:03 Encounter Reason: Asthma Follow Up [facility] - The referring provider is Dr. Sanju Coulter. Symptoms include dyspnea (with exer [facility] tion, also has a diagnosis of [...] does not include hospitalization for asthma. Pertinent [facility] history does not include asthma, chronic obstructive [...] 12-Nov-2013 18:52 Encounter Reason: Asthma Follow Up [facility] - The referring provider is Dr. Sanju Coulter. Symptoms include dyspnea (with exer [facility] tion, also has a [...] Encounter Diagnosis: ASTHMA (Renamed from AIRWAY HYPERREACTIVITY) [facility] Office Visit 13-May-2013 11:05 To 13-May-2013 16:29 Encounter Reason: Sarcoidosis - Symptoms include fatigue, cough and dyspnea. The patient describes this as moderate in [facility] severity and unchanged. Symptoms [...] and states she was told by her camp nurse she is currently in CHF). Current treatment includes inhaled short-acting beta-2 agonists, inhaled long-acting beta-2 agonists, inhaled corticosteroids and oral c orticosteroids. Pertinent medical history includes other pulmonary disease ( sarcoidosis) and allergic rhinitis, while pertinent medical history does not include hospitalization for asthma. 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 The patient describes this as moderate in [facility] severity and unchanged. Symptoms [...] and states she was told by her camp nurse she is currently in CHF). Current treatment includes inhaled short-acting beta-2 agonists, inhaled long-acting beta-2 agonists, inhaled corticosteroids and oral c orticosteroids. Pertinent medical history includes other pulmonary disease ( sarcoidosis) and allergic rhinitis, while pertinent medical history does not include hospitalization for asthma. Pertinent [facility] history does not include asthma, chronic obstructive [...] PATIENT TELLS ME THAT SHE TAKEN TO [facility] WHERE SHE SPENT 1 NIGHT. PER PATIENT, THE RESULTS FOR MRI, ECHO, CXR DONE AT [facility] WHERE NORMAL. PATIENT PRESENTS TODAY STATING THAT SHE IS FINE AND TAKING MEDS WITHOUT ANY PROBLEMS. Encounter Diagnosis: ASTHMA (Renamed from AIRWAY HYPERREACTIVITY) Office Visit 13-May-2012 12:43 To 13-May-2012 13:54 Encounter Reason: Asthma Follow Up [facility] - The referring provider is Dr. Sanju Coulter. Symptoms include dyspnea (with exer [facility] tion, recently diagnosed with CHF), wheezing, cough, prednisone (on due to Sarcoidosis), seasonal triggers and environmental triggers. The last office visit was 2 month(s) ago. Management changes made a t the last visit include none (since patient was hospitalized for pneumonia and states she was told by her camp nurse she is currently in CHF). Current treatment [...] Historical Summary 08-May-2012 10:17 To 08-May-2012 10:28 [facility] Office Visit 01-Mar-2012 13:37 To 01-Mar-2012 15:08 Encounter Reason: Asthma Follow Up [facility] - The referring provider is Dr. Sanju Coulter. Symptoms include dyspnea (with exer [facility] tion), wheezing, cough, mucous [...] AND TREATED AND D/C. NOW BACK TO [facility] WITH OCC SOB AND RESPONSE TO XOPENEX. SHE IS NOT HAVING ANY JOINT PAINS. Encounter Diagnosis: SARCOIDOSIS (135.) Medication Order 26-Feb-2012 15:45 To 26-Feb-2012 15:45 Encounter Diagnosis: ASTHMA (493.90) [facility] Office Visit 25-Oct-2011 12:16 To 25-Oct-2011 16:37 Encounter Reason: Asthma Follow Up [facility] - The referring provider is Dr. Sanju Coulter. Symptoms include dyspnea (with exer [facility] tion), wheezing, cough, mucous [...] Historical Summary 24-Oct-2011 8:59 To 24-Oct-2011 9:13 [facility] Office Payers Medicare [place] [address] [facility] [address] [place] Group Number: [id number] tel: Medicaid/Comp Science C [address] [facility] [address] [place] Group Number: NONE tel: MYA LOVE [address] [place] [id number] tel:
[2019-12-27 19:43] VITALS: BP 146/82
--- NOTE | 2019-12-27 19:47 | UC ---
Ear Complaint HPI - HPI Summary HPI Summary: 59 y/o female presents to the urgent care c/o sinus congestion w/ moderate PND for the past 1.5weeks. Symptoms worsen for the past week w/ B/L ear pressure and decrease hearing. She tried OTC Debrox and flushed her ear and wax was removed, but she thinks it still plugged b/c she still w/ pressure and mild pain LF>RT. Pain is 2/10. Pt denies fever, tinnitus, SOB, cough, dizziness, chest pain,abdominal pain, N/V/D or recent travel. - History of Current Complaint Chief Complaint: UCEar Stated Complaint: EARS PLUGGED Time Seen by Provider: 12/27/19 19:35 Hx Obtained From: Patient Onset/Duration: Gradual Onset, Lasting Weeks - 1.5 weeks w/ sinus ongestion and a lot PND, Still Present Severity Initially: Mild Severity Currently: Moderate Pain Intensity: 2 - B/L ear pain and pressure Pain Scale Used: 0-10 Numeric Aggravating Factors: Other - decrease hearing Alleviating Factors: OTC Meds Associated Signs/Symptoms: Positive: Hearing Loss, URI Symptoms - Allergies/Home Medications Allergies/Adverse Reactions: Allergies Allergy/AdvReac Type Severity Reaction Status Date / Time Adhesive Tape Allergy Unknown Verified 12/27/19 19:38 Reaction Details Carbapenems Allergy Unknown Verified 12/27/19 19:38 Reaction Details Cephalosporins Allergy Unknown Verified 12/27/19 19:38 Reaction Details latex Allergy Unknown Verified 12/27/19 19:38 Reaction Details Penicillins Allergy Unknown Verified 12/27/19 19:38 Reaction Details betaloctams Allergy Unknown Uncoded 12/27/19 19:38 Reaction Details Home Medications: Home Medications Nitroglycerin TAB 0.4 MG* 0.4 mg SL Q5M PRN 08/08/12 [History Confirmed 12/27/19 ] Aspirin EC TAB* [Ecotrin EC Low Dose 81 MG*] 81 mg PO DAILY 09/18/14 [History Confirmed 12/27/19] Clopidogrel TAB* [Plavix TAB*] 75 mg PO DAILY 09/18/14 [History Confirmed ] Furosemide TAB* [Lasix TAB*] 40 mg PO BID 09/18/14 [History Confirmed 12/27/19] Levalbuterol HFA INHALER* [Xopenex Hfa Inhaler*] 1 puff INH Q6H PRN 09/18/14 [ History Confirmed 12/27/19] Montelukast Sodium TAB* [Singulair 10 MG TAB*] 10 mg PO BEDTIME 09/18/14 [ History Confirmed 12/27/19] Pantoprazole TAB * [Protonix TAB*] 40 mg PO BID 09/18/14 [History Confirmed ] Potassium Chlor TAB* [Potassium Chlor TAB 20 MEQ*] 20 meq PO BID 09/18/14 [ History Confirmed 12/27/19] Topiramate TAB(*) [Topamax 100 mg tab] 100 mg PO BID 09/18/14 [History Confirmed 12/27/19] amLODIPine TAB* [Norvasc 5 mg TAB*] 10 mg PO DAILY 09/18/14 [History Confirmed 12/27/19] predniSONE 10 mg TAB [Deltasone 10 MG TAB*] 10 mg PO DAILY 09/18/14 [History Confirmed 12/27/19] Simvastatin [Zocor 5 MG-] 0 mg PO DAILY 12/18/16 [History Confirmed 12/27/19] DOXYcycline CAP(*) [DOXYcycline 100MG CAP(*)] 100 mg PO BID #19 cap 12/27/19 [Rx ] Nebivolol HCl [Bystolic] 10 mg PO BID 12/27/19 [History Confirmed 12/27/19] dilTIAZem HCl [Cartia Xt] 1 cap DAILY 12/27/19 [History Confirmed 12/27/19] PMH/Surg Hx/FS Hx/Imm Hx Previously Healthy: Yes Endocrine History: Diabetes, Dyslipidemia Cardiovascular History: Cardiac Disease, Hypertension Other Respiratory History: sarcoidosis - Surgical History Surgical History: Yes Surgery Procedure, Year, and Place: CABG X 4 vessels - Family History Known Family History: Positive: Cardiac Disease, Hypertension, Diabetes - Social History Occupation: Unemployed Lives: With Family Alcohol Use: None Substance Use Type: None Smoking Status (MU): Never Smoked Tobacco Review of Systems All Other Systems Reviewed And Are Negative: Yes Constitutional: Positive: Negative Skin: Positive: Negative Eyes: Positive: Negative ENT: Positive: Ear Ache - B/L ear pain and pressure, Nasal Discharge - yellowish , Sinus Congestion, Other - PND Respiratory: Positive: Negative Cardiovascular: Positive: Negative Gastrointestinal: Positive: Negative Genitourinary: Positive: Negative Motor: Positive: Negative Neurovascular: Positive: Negative Musculoskeletal: Positive: Negative Neurological/Mental Status: Positive: Negative Psychological: Positive: Negative Is Patient Immunocompromised?: No Physical Exam - Summary Physical Exam Summary: Vitals: reviewed General: Well developed, well-nourished female patient with NAD. Head and face: Normocephalic and atraumatic, Positive tenderness over the frontal and maxillary sinuses.. Eyes: PERRLA, EOMI x 2. Normal conjunctiva. No eye discharge. ENT: B/L external ear canals clear, RT TM bulged w/ fluid, LF TM injected w/ erythema and fluid, no perforation. Nose: edematous and erythematous nasal mucosa with yellowish discharge and erythematous mucosa. Pharynx with erythema, no exudate. moderate Yellowish PND Neck: Supple, no JVD, no carotid bruits and no lymphadenopathy. Lungs: clear, no rales, no rhonchi, no wheezes. CVS: RRR, S1 and S2 present no murmurs or gallops appreciated. Abdomen: soft nontender with positive bowel sounds. Extremities: no edema noted. Neuro: WNL. Skin: warm and dry Triage Information Reviewed: Yes Vital Signs: Initial Vital Signs Temp 99 F 12/27/19 19:36 Pulse 91 12/27/19 19:36 Resp 18 12/27/19 19:36 BP 146/82 12/27/19 19:36 Pulse Ox 98 12/27/19 19:36 Ear Complaint Course/Dx - Course Course Of Treatment: 59 y/o female presents to the urgent care c/o sinus congestion w/ moderate PND for the past 1.5weeks. Symptoms worsen for the past week w/ B/L ear pressure and decrease hearing. She tried OTC Debrox and flushed her ear and wax was removed, but she thinks it still plugged b/c she still w/ pressure and mild pain LF>RT. Pain is 2/10. Pt denies fever, tinnitus, SOB, cough, dizziness, chest pain,abdominal pain, N/V/D or recent travel. Hx obtained. Pt w/ sinusitis and left otitis media on examination. Pt with 1.5 weeks of symptoms getting worse. Pt Rx Amoxicillin PO. First dose given at the clinic tonight. Pt advised to use Flonase and Sudafed PO she has at home to alleviate sinus congestion. Discharge instructions explained to Pt. Advised to Return to the clinic or PCP if symptoms do not improve.Pt's BP is elevated today and advised to decrease salt in diet, monitor BP and f/u with PCP if BP continues to be elevated for further management. Pt understood and agreed with plan of care. - Differential Dx/Diagnosis Differential Diagnosis/HQI/PQRI: Cerumen Impaction, Otitis Externa, Otitis Media , Perforated TM, URI Provider Diagnosis: Left otitis media, Sinusitis, acute, Uncontrolled hypertension Discharge ED - Sign-Out/Discharge Documenting (check all that apply): Patient Departure - D/C home All imaging exams completed and their final reports reviewed: No Studies - Discharge Plan Condition: Stable Disposition: HOME Prescriptions: DOXYcycline CAP(*) [DOXYcycline 100MG CAP(*)] 100 mg PO BID #19 cap Patient Education Materials: Ear Infection (ED) Referrals: Deyanira Plata NP [Primary Care Provider] - 3 Days Ismael Beaver MD [Medical Doctor] - 1 Week Additional Instructions: 1- Please increase fluid intake and rest. take full course of antibiotics to avoid resistance. Take yogurts w/ probiotics or Culturelle to protect your GI system 2-Use Flonase nasal spray you have at home as directed to help drain fluid. Also buy saline drops to clear sinuses 3- Take Sudafed PO you have at home PO to alleviates sinus congestion 4-Please f/u w/ your PCP in 3 days if symptoms do not improve for further management and treatment 5-Your BP is elevated today advised to decrease salt in diet, monitor BP and f/ u with PCP for further management. - Billing Disposition and Condition Condition: STABLE Disposition: Home
[2019-12-27] MEDS ORDERED: DOXYcycline CAP(*) 100 MG PO ONE (20:00)
== END 2019-12-27 20:15 | disposition home or self-care (01) ==
LOC: UCCORT 19:24
DX: H66.92 Otitis media, unspecified, left ear (principal); J01.90 Acute sinusitis, unspecified; I10 Essential (primary) hypertension; E11.9 Type 2 diabetes mellitus without complications; D86.9 Sarcoidosis, unspecified; E78.5 Hyperlipidemia, unspecified; Z91.09 Other allergy status, other than to drugs and biological substances; Z88.0 Allergy status to penicillin; Z91.040 Latex allergy status; Z88.1 Allergy status to other antibiotic agents; Z88.8 Allergy status to other drugs, medicaments and biological substances; Z79.82 Long term (current) use of aspirin; Z79.899 Other long term (current) drug therapy
CPT/HCPCS: 99202; A9270-GY; G0463